=== PATIENT | female | born 1960 | race Caucasian/White ===

== ENCOUNTER 2021-02-14 09:19 | Day surgery (SDC) | payer OTHER ==
[2021-02-14] MEDS: Polymyxin B/Trimethoprim 10 ML Bottle EYERT SCH ×5 (09:52→11:36)
[2021-02-14] MEDS: Brimonidine 0.2% Ophth Soln 5 ML Bottle EYERT SCH ×5 (09:59→11:36)
--- NOTE | 2021-02-14 10:06 | PCM.PREANE ---
Preanesthetic Assessment - Procedure Proposed Procedure: left cataract extraction and IOC - Anesthesia/Transfusion/Family Hx Anesthesia History: Prior Anesthesia Without Reaction Family History of Anesthesia Reaction: No Transfusion History: Prior Transfusion Without Reaction Intubation History: Unknown - Review of Systems General: No Symptoms Pulmonary: Wheezing, Cough (smoker cough- chronic) Cardiovascular: No Symptoms Gastrointestinal: Nausea Neurological: No Symptoms Other: Reports: Liver Problems (liver cancer) - Physical Assessment NPO Status Date: 02/13/21 NPO Status Time: 19:00 Vital Signs: Last Vital Signs Temp 97.5 F 02/14/21 09:45 Pulse 90 02/14/21 09:45 Resp 16 02/14/21 09:45 BP 138/94 H 02/14/21 09:45 Pulse Ox 98 02/14/21 09:45 Height: 1.65 m Weight: 55.792 kg ASA Class: 3 Mental Status: Alert & Oriented x3 Airway Class: Mallampati = 2 Dentition: Reports: [place](s), Broken Tooth/Teeth, Missing Tooth/Teeth, Caries Thyro-Mental Finger Breadths: 2 Mouth Opening Finger Breadths: 2 ROM/Head Extension: Full Lungs: Normal Respiratory Effort, Wheezing (small wheeze of right upper lobe) Cardiovascular: Regular Rate, Regular Rhythm, No Murmurs - Allergies Allergies/Adverse Reactions: Allergies Allergy/AdvReac Type Severity Reaction Status Date / Time No Known Allergies Allergy Verified 02/14/21 09:29 - Acknowledgements Anesthesia Type Planned: MAC Pt an Appropriate Candidate for the Planned Anesthesia: Yes Alternatives and Risks of Anesthesia Discussed w Pt/Guardian: Yes Pt/Guardian Understands and Agrees with Anesthesia Plan: Yes PreAnesthesia Questionnaire HEENT History: Reports: Cataract, Impaired Vision Cardiovascular History: Reports: None Respiratory History: Reports: Other (See Below) (hx of smoking) Other Respiratory History: mlung cancer and hx of smoking Gastrointestinal History: Reports: None Genitourinary History: Reports: None Musculoskeletal History: Reports: RA Neurological History: Reports: None Psychiatric History: Reports: Anxiety Endocrine/Metabolic History: Reports: None Hematologic History: Reports: None Immunologic History: Reports: None Oncologic (Cancer) History: Reports: Liver, Lung, Other (See Below) (hx chemo) Other Oncologic History: currently on chemo IV and gets it every 21 days, going in next saturday for her next dose of chemo Dermatologic History: Reports: None - Past Surgical History Female Surgical History: Reports: Hysterectomy - SUBSTANCE USE Tobacco Use Status *Q: Former Tobacco User (quit 2020) Tobacco Use Within Last Twelve Months: No Second Hand Smoke Exposure: No Days Per Week of Alcohol Use: 0 Number of Drinks Per Day: 0 Total Drinks Per Week: 0 Recreational Drug Use History: No - HOME MEDS Home Medications: Home Meds Calcium Carbonate/Vitamin D3 [Calcium 500+D Tablet Chew] 1 tab PO DAILY 02/14/21 [History] Dextran 70/Hypromellose [Artificial Tears] 1 each OP DAILY 02/14/21 [History] Hydrocodone/Acetaminophen [HYDROcodone-Acetaminophen 5-325 MG] 1 each PO DAILY 02/14/21 [History] LORazepam [Ativan] 1 mg PO DAILY PRN 02/14/21 [History] Magnesium Oxide [Magnesium] 400 mg PO DAILY 02/14/21 [History] Potassium Chloride 20 meq PO DAILY 02/14/21 [History] allopurinoL [Zyloprim] 100 mg PO DAILY 02/14/21 [History] levETIRAcetam [Keppra] 500 mg PO DAILY 02/14/21 [History] - CURRENT (IN HOUSE) MEDS Current Meds: Current Medications Brimonidine Tartrate (Brimonidine 0.2% Ophth Soln 5 Ml Bottle) 0 ml EYERT ASDIRECTED ZAIRA Stop: 02/14/21 23:00 Cefuroxime Sodium (Cefuroxime 10 Mg/Ml Syringe) 0 mg EYERT ASDIRECTED ZAIRA Stop: 02/14/21 23:00 Lidocaine HCl (Lidocaine 1% Pf 2 Ml Sdv) 0 ml INJECT ASDIRECTED ZAIRA Stop: 02/14/21 23:00 Phenylephrine HCl (Phenylephrine 2.5% Ophth Soln 2 Ml Bot) 0 ml EYERT ASDIRECTED ZAIRA Stop: 02/14/21 23:00 Pilocarpine HCl (Pilocarpine 4% Ophth Soln 15 Ml Bot) 0 ml EYERT ASDIRECTED ZAIRA Stop: 02/14/21 23:00 Polymyxin/Trimethoprim Sulfate (Polymyxin B/Trimethoprim 10 Ml Bottle) 0 ml EYERT ASDIRECTED ZAIRA Stop: 02/14/21 23:00 Last Admin: 02/14/21 09:52 Dose: 1 drop Documented by: Tetracaine HCl (Tetracaine Hcl/Pf 0.5% 4 Ml Bottle) 0 ml EYEBOTH ASDIRECTED ZAIRA Stop: 02/14/21 23:00 Tropicamide (Tropicamide 1% Ophth Soln 15 Ml Bottle) 0 ml EYERT ASDIRECTED ZAIRA Stop: 02/14/21 23:00
[2021-02-14] MEDS: Phenylephrine 2.5% Ophth Soln 2 ML Bot EYERT SCH ×5 (10:11→11:18)
[2021-02-14] MEDS: Tropicamide 1% Ophth Soln 15 ML Bottle EYERT SCH ×4 (10:15→10:55)
[2021-02-14] MEDS: Tetracaine HCl/PF 0.5% 4 ML Bottle EYEBOTH SCH ×3 (11:08→11:33)
[2021-02-14] MEDS: Lidocaine 1% PF 2 ML SDV INJECT SCH ×2 (11:25→11:33)
[2021-02-14] MEDS: Cefuroxime 10 MG/ML SYRINGE EYERT SCH ×2 (11:34→11:35)
[2021-02-14] MEDS: Pilocarpine 4% Ophth Soln 15 ML Bot EYERT SCH ×2 (11:34→11:36)
--- NOTE | 2021-02-14 11:39 | PCM48HPAN ---
Post Anesthesia Note - EVALUATION WITHIN 48HRS OF ANESTHETIC Vital Signs in Normal Range: Yes Patient Participated in Evaluation: Yes Respiratory Function Stable: Yes Airway Patent: Yes Cardiovascular Function Stable: Yes Hydration Status Stable: Yes Pain Control Satisfactory: Yes Nausea and Vomiting Control Satisfactory: Yes Mental Status Recovered: Yes Vital Signs: Last Vital Signs Temp 36.4 C 02/14/21 09:45 Pulse 90 02/14/21 09:45 Resp 16 02/14/21 09:45 BP 138/94 H 02/14/21 09:45 Pulse Ox 98 02/14/21 09:45
== END 2021-02-14 11:47 | disposition home or self-care (01) ==
LOC: JD.SDS 09:19
PROVIDERS: ATTEND Ophthalmology
DX: H25.813 Combined forms of age-related cataract, bilateral (principal); H18.451 Nodular corneal degeneration, right eye; H35.373 Puckering of macula, bilateral; H35.3131 Nonexudative age-related macular degeneration, bilateral, early dry stage; H16.223 Keratoconjunctivitis sicca, not specified as Sjogren's, bilateral; Z98.890 Other specified postprocedural states; Z79.899 Other long term (current) drug therapy; Z87.891 Personal history of nicotine dependence
CPT/HCPCS: 66984; J0697; C1780

== ENCOUNTER 2021-02-24 20:38 | Emergency (ER) | payer OTHER ==
[2021-02-24] MEDS ORDERED: Sodium Chloride 0.9% 10 ML Syringe FLUSH PRN (21:20)
[2021-02-24] MEDS ORDERED: Sodium Chloride 0.9% 1,000 ML IV SCH (21:30)
[2021-02-24] MEDS ORDERED: Ondansetron 4 MG/2 ML SDV IVPUSH ONE (21:39)
--- NOTE | 2021-02-24 22:10 | EDM.PDOC ---
ED HPI GENERAL MEDICAL PROBLEM - General Chief Complaint: General Stated Complaint: WEAK/UNABLE TO EAT OR DRINK Time Seen by Provider: 02/24/21 21:04 Source of Information: Reports: Patient, RN Notes Reviewed - History of Present Illness INITIAL COMMENTS - FREE TEXT/NARRATIVE: 60 yr old female comes in feeling very weak, dehydrated. she has been getting chemo for about 1 yr with hx of cancer involving her lung, liver and brain under the care of Jayjay Holland. She did get her last chemo 2 days ago. Not eating, drinking some but not a lot of fluids. She has not been vomiting. No diarrhea. Mouth feels dry. Very occasional cough, no chest pain or difficulty breathing. - Related Data Allergies Allergy/AdvReac Type Severity Reaction Status Date / Time No Known Allergies Allergy Verified 02/24/21 21:09 Home Meds: Home Meds Calcium Carbonate/Vitamin D3 [Calcium 500+D Tablet Chew] 1 tab PO DAILY 02/14/21 [History] Dextran 70/Hypromellose [Artificial Tears] 1 each OP DAILY 02/14/21 [History] Hydrocodone/Acetaminophen [HYDROcodone-Acetaminophen 5-325 MG] 1 each PO DAILY 02/14/21 [History] LORazepam [Ativan] 1 mg PO DAILY PRN 02/14/21 [History] Magnesium Oxide [Magnesium] 400 mg PO DAILY 02/14/21 [History] Potassium Chloride 20 meq PO BID 02/14/21 [History] allopurinoL [Zyloprim] 100 mg PO DAILY 02/14/21 [History] levETIRAcetam [Keppra] 500 mg PO BID 02/14/21 [History] Prochlorperazine [Compazine] 10 mg PO QID PRN 02/24/21 [History] dexAMETHasone [Dexamethasone] 2 mg PO DAILY 02/24/21 [History] Past Medical History HEENT History: Reports: Cataract, Impaired Vision Cardiovascular History: Reports: None Respiratory History: Reports: Other (See Below) Other Respiratory History: mlung cancer and hx of smoking Gastrointestinal History: Reports: None Genitourinary History: Reports: None Musculoskeletal History: Reports: RA Neurological History: Reports: None Psychiatric History: Reports: Anxiety Endocrine/Metabolic History: Reports: None Hematologic History: Reports: None Immunologic History: Reports: None Oncologic (Cancer) History: Reports: Brain, Liver, Lung, Other (See Below) Other Oncologic History: currently on chemo IV and gets it every 21 days, going in next saturday for her next dose of chemo Dermatologic History: Reports: None - Past Surgical History Female Surgical History: Reports: Hysterectomy Social & Family History - Tobacco Use Tobacco Use Status *Q: Unknown Ever Used Tobacco ED ROS GENERAL - Review of Systems Review Of Systems: See Below Constitutional: Reports: Decreased Appetite. Denies: Fever, Chills HEENT: Denies: Throat Pain Respiratory: Reports: Cough (very occasional). Denies: Shortness of Breath Cardiovascular: Denies: Chest Pain GI/Abdominal: Reports: Anorexia, Decreased Appetite. Denies: Abdominal Pain, Diarrhea, Vomiting Musculoskeletal: Reports: No Symptoms Skin: Reports: No Symptoms Neurological: Reports: Dizziness. Denies: Headache ED EXAM, GENERAL - Physical Exam Exam: See Below General Appearance: Alert, No Apparent Distress Head: Atraumatic Neck: Supple Respiratory/Chest: No Respiratory Distress Cardiovascular: Tachycardia GI/Abdominal: Soft, Non-Tender. No: Guarding Extremities: Normal Inspection, Normal Range of Motion. No: Pedal Edema, Leg Pain Neurological: Alert, Oriented, No Motor/Sensory Deficits Skin Exam: Warm, Dry, Normal Color, No Rash Course - Vital Signs Last Recorded V/S: Last Vital Signs Temp 98.5 F 02/24/21 21:06 Pulse 122 H 02/24/21 21:06 Resp 18 02/24/21 21:06 BP 137/82 02/24/21 21:06 Pulse Ox 95 02/24/21 21:06 - Orders/Labs/Meds Orders: Active Orders 24 hr Category Date Time Status Peripheral IV Insertion Adult [OM.PC] Stat Oth 02/24/21 21:20 Ordered Labs: Laboratory Tests 02/24/21 02/24/21 Range/Units 21:36 21:36 WBC 10.88 H (3.98-10.04) K/mm3 RBC 3.35 L (3.98-5.22) M/mm3 Hgb 10.8 L (11.2-15.7) gm/dl Hct 32.3 L (34.1-44.9) % MCV 96.4 H (79.4-94.8) fl MCH 32.2 (25.6-32.2) pg MCHC 33.4 (32.2-35.5) g/dl RDW Std Deviation 59.8 H (36.4-46.3) fL Plt Count 277 (182-369) K/mm3 MPV 7.8 L (9.4-12.3) fl Neut % (Auto) 90.7 H (34.0-71.1) % Lymph % (Auto) 5.1 L (19.3-51.7) % [place] % (Auto) 3.5 L (4.7-12.5) % Eos % (Auto) 0 L (0.7-5.8) Baso % (Auto) 0.1 (0.1-1.2) % Neut # (Auto) 9.86 H (1.56-6.13) K/mm3 Lymph # (Auto) 0.56 L (1.18-3.74) K/mm3 [place] # (Auto) 0.38 H (0.24-0.36) K/mm3 Eos # (Auto) 0.00 L (0.04-0.36) K/mm3 Baso # (Auto) 0.01 (0.01-0.08) K/mm3 Sodium 130 L (136-145) mEq/L Potassium 4.2 (3.5-5.1) mEq/L Chloride 95 L (98-107) mEq/L Carbon Dioxide 20 L (21-32) mEq/L Anion Gap 19.2 H (5-15) BUN 9 (7-18) mg/dL Creatinine 0.6 (0.55-1.02) mg/dL Est Cr Clr Drug Dosing TNP Estimated GFR (MDRD) > 60 (>60) mL/min BUN/Creatinine Ratio 15.0 (14-18) Glucose 84 (70-99) mg/dL Calcium 8.2 L (8.5-10.1) mg/dL Total Bilirubin 1.3 H (0.2-1.0) mg/dL AST 820 H (15-37) U/L ALT 246 H (14-59) U/L Alkaline Phosphatase 620 H (46-116) U/L Total Protein 6.6 (6.4-8.2) g/dl Albumin 2.3 L (3.4-5.0) g/dl Globulin 4.3 gm/dL Albumin/Globulin Ratio 0.5 L (1-2) Meds: Medications Discontinued Medications Generic Name Dose Route Start Last Admin Trade Name [place] PRN Reason Stop Dose Admin Heparin Sodium (Porcine) 500 units 02/24/21 23:45 02/24/21 23:51 Heparin Sodium 100 Units/Ml 5 Ml Syringe FLUSH 500 units ASDIRECTED PRN Administration deacess port Sodium Chloride 1,000 mls @ 999 mls/hr 02/24/21 21:30 02/24/21 21:37 Normal Saline IV 999 mls/hr ONETIME ZAIRA Administration Lactated Ringer's 1,000 mls @ 999 mls/hr 02/24/21 22:26 02/24/21 22:56 Ringers, Lactated IV 02/24/21 23:26 999 mls/hr .BOLUS ONE Administration Ondansetron HCl 4 mg 02/24/21 21:39 02/24/21 22:10 Ondansetron 4 Mg/2 Ml Sdv IVPUSH 02/24/21 21:40 Not Given ONETIME ONE Sodium Chloride 10 ml 02/24/21 21:20 02/24/21 21:37 Sodium Chloride 0.9% 10 Ml Syringe FLUSH 10 ml ASDIRECTED PRN Administration Keep Vein Open - Re-Assessments/Exams Free Text/Narrative Re-Assessment/Exam: 02/24/21 22:36 labs confirm she is quite dehydrated. Anion gap of around 19, Co2 20. First liter of NS is about in. Will give 1 further liter LR prior to discharge. Departure - Departure Time of Disposition: 23:35 Disposition: Home, Self-Care 01 Condition: Fair Clinical Impression: Anorexia, History of recent chemotherapy - Discharge Information Referrals: Gloria Lowe [employer] [Primary Care Provider] - Forms: ED Department Discharge Additional Instructions: Clear liquids and bland diet as tolerated. Continue current medications. Call Dr Dickerson's nurse Saturday morning. See if arrangements can be made for clinic infusions as needed. Return to ED as needed if symptoms worsening in any way. Sepsis Event Note (ED) - Evaluation Sepsis Screening Result: No Definite Risk - Focused Exam Vital Signs: Vital Signs Temp Pulse Resp BP Pulse Ox 02/24/21 21:06 98.5 F 122 H 18 137/82 95 - My Orders Last 24 Hours: My Active Orders 02/24/21 21:20 Peripheral IV Insertion Adult [OM.PC] Stat - Assessment/Plan Last 24 Hours: My Active Orders 02/24/21 21:20 Peripheral IV Insertion Adult [OM.PC] Stat
[2021-02-24] MEDS ORDERED: Lactated Ringers 1,000 ML IV ONE (22:26)
== END 2021-02-24 23:55 | disposition home or self-care (01) ==
LOC: JD.ED 20:38
DX: R63.0 Anorexia (principal); E86.0 Dehydration; M06.9 Rheumatoid arthritis, unspecified; Z79.899 Other long term (current) drug therapy; Z87.891 Personal history of nicotine dependence; Z92.21 Personal history of antineoplastic chemotherapy
CPT/HCPCS: 36415; 80053; 85025; 99284; J1642; J7030; J7120

== ENCOUNTER 2021-03-02 13:19 | Emergency (ER) | payer OTHER ==
--- NOTE | 2021-03-02 14:47 | EDM.PDOC ---
<Wojciech Kelly Deepak - Last Filed: 03/03/21 05:57> ED HPI GENERAL MEDICAL PROBLEM - General Chief Complaint: Gastrointestinal Problem Stated Complaint: NOT EATING CAN NOT SWALLOW MEDS Time Seen by Provider: 03/02/21 13:53 - Related Data Allergies Allergy/AdvReac Type Severity Reaction Status Date / Time No Known Allergies Allergy Verified 03/02/21 13:55 Home Meds: Home Meds Calcium Carbonate/Vitamin D3 [Calcium 500+D Tablet Chew] 1 tab PO DAILY 02/14/21 [History] Dextran 70/Hypromellose [Artificial Tears] 1 each OP DAILY 02/14/21 [History] Hydrocodone/Acetaminophen [HYDROcodone-Acetaminophen 5-325 MG] 1 each PO DAILY 02/14/21 [History] LORazepam [Ativan] 1 mg PO DAILY PRN 02/14/21 [History] Magnesium Oxide [Magnesium] 400 mg PO DAILY 02/14/21 [History] Potassium Chloride 20 meq PO BID 02/14/21 [History] allopurinoL [Zyloprim] 100 mg PO DAILY 02/14/21 [History] levETIRAcetam [Keppra] 500 mg PO BID 02/14/21 [History] Prochlorperazine [Compazine] 10 mg PO QID PRN 02/24/21 [History] dexAMETHasone [Dexamethasone] 2 mg PO DAILY 02/24/21 [History] Course - Re-Assessments/Exams Free Text/Narrative Re-Assessment/Exam: 03/02/21 21:[address] Segundo for change of shift. I agree with his history and physical examination as documented. Portable chest radiograph appears to be grossly normal. The cardiac silhouette is within normal limits. No pulmonary vascular congestion. No pleural effusions seen on this AP view. No focal infiltrate. No pneumothorax. Left- sided Port-A-Cath incidentally noted. Formal read per the Radiologist pending. BMP is remarkable for continued hyponatremia 128, with a bicarbonate up to 20 and an anion gap down to 18.1, with remainder of her BMP being unremarkable. The patient has not provided a urine sample for urinalysis. Notified that the patient would like to go home. She is uncomfortable here in the ED. 03/02/21 21:49 I discussed the situation with the patient and her [id number], at the bedside. The patient is willing to try to give us a urine sample and wait for urinalysis. 03/02/21 23:10 The patient's urinalysis is unremarkable. 03/02/21 23:11 Test results discussed with the patient. She states that she wants to go home, but I am notified by Shantel LYNNE that the patient's is not comfortable taking her home, and that he has left. Unfortunately for the patient, she will need to stay here in the ED overnight. 03/03/21 05:57 Notified by Shantel LYNNE that the patient's is here, ready to take the patient home. Departure - Departure Time of Disposition: 05:57 Disposition: Home, Self-Care 01 Condition: Good Clinical Impression: Generalized weakness, Dizzy, Anorexia, Hyponatremia, High anion gap metabolic acidosis - Discharge Information *PRESCRIPTION DRUG MONITORING PROGRAM REVIEWED*: Not Applicable *COPY OF PRESCRIPTION DRUG MONITORING REPORT IN PATIENT SANTOS: Not Applicable Instructions: Hyponatremia, [id number], Metabolic Acidosis, Dizziness, [id number] Referrals: Gloria Lowe NP [Ordering Only Provider] - Forms: ED Department Discharge Additional Instructions: You were seen in the emergency room for generalized weakness, dizziness, and decreased oral intake in the setting of receiving chemotherapy. Work-up in the ER included numerous blood tests, an arterial blood gas, a urinalysis, a swab for the SARS-CoV-2 virus, and a chest x-ray. Your work-up found your sodium to be moderately depressed at 128, along with mild acidosis and elevated liver enzymes. You were treated with IV fluid and several doses of IV Dilaudid. Going forward, we recommend that you continue to take your current medications as prescribed. If any other problems, please do not hesitate to return to the ER. <Chandu Segundo - Last Filed: 03/05/21 17:14> ED HPI GENERAL MEDICAL PROBLEM - General Source of Information: Reports: Patient, RN Notes Reviewed - History of Present Illness INITIAL COMMENTS - FREE TEXT/NARRATIVE: 60 yr old female comes in very weak, dizzy, status post recent chemo. 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 She was diagnosed about 1 yr ago. Last chemo 8 days ago. Has not been eating much at all and drinking very little for fluids. She has mets to her back and a lot of low back pain. No appetite, has not been vomiting. No diarrhea. Adding to family stress their daughter just a week ago, Rosary tomorrow, in 1 1/2 days. Past Medical History HEENT History: Reports: Cataract, Impaired Vision Cardiovascular History: Reports: None Respiratory History: Reports: Other (See Below) Other Respiratory History: mlung cancer and hx of smoking Gastrointestinal History: Reports: None Genitourinary History: Reports: None Musculoskeletal History: Reports: RA Neurological History: Reports: None Psychiatric History: Reports: Anxiety Endocrine/Metabolic History: Reports: None Hematologic History: Reports: None Immunologic History: Reports: None Oncologic (Cancer) History: Reports: Brain, Liver, Lung, Other (See Below) Other Oncologic History: currently on chemo IV and gets it every . last received last week saturday. Dermatologic History: Reports: None - Past Surgical History Female Surgical History: Reports: Hysterectomy Social & Family History - Tobacco Use Tobacco Use Status *Q: Former Tobacco User Used Tobacco, but Quit: Yes Month/Year Tobacco Last Used: august 2019 - Caffeine Use Caffeine Use: Reports: None - Recreational Drug Use Recreational Drug Use: No ED ROS GENERAL - Review of Systems Review Of Systems: See Below Constitutional: Reports: Decreased Appetite, Weight Loss. Denies: Fever, Chills HEENT: Reports: Other (mouth is dry) Respiratory: Denies: Shortness of Breath Cardiovascular: Denies: Chest Pain Endocrine: Reports: Fatigue GI/Abdominal: Reports: Decreased Appetite, Nausea. Denies: Abdominal Pain, Diarrhea, Vomiting Skin: Reports: Pallor. Denies: Diaphoresis Neurological: Reports: Dizziness, Weakness (generalized) ED EXAM, GENERAL - Physical Exam Exam: See Below General Appearance: Other (drowsy, very ill appearing at time of initial exam) Eye Exam: Bilateral Eye: PERRL (eyes are sunken bilat) Ear Exam: Bilateral Ear: Auricle Normal Nose: Normal Inspection Throat/Mouth: Other (oral mucosa very dry) Respiratory/Chest: No Respiratory Distress, Lungs Clear, Normal Breath Sounds Cardiovascular: Tachycardia GI/Abdominal: Soft, Non-Tender, Hepatomegaly Back Exam: No: CVA Tenderness (L), CVA Tenderness (R) Extremities: Normal Inspection, Pedal Edema (trace bilat). No: Leg Pain, Increased Warmth Neurological: Other (very drowsy at time of initial exam) Skin Exam: Pallor Course - Vital Signs Last Recorded V/S: Last Vital Signs Temp 96.4 F L 03/02/21 13:49 Pulse 116 H 03/03/21 02:34 Resp 16 03/03/21 02:34 BP 134/94 H 03/03/21 02:34 Pulse Ox 92 L 03/03/21 02:34 - Orders/Labs/Meds Labs: Laboratory Tests 03/02/21 03/02/21 03/02/21 Range/Units 14:18 14:18 14:18 WBC 13.89 H (3.98-10.04) K/mm3 RBC 3.11 L (3.98-5.22) M/mm3 Hgb 10.0 L (11.2-15.7) gm/dl Hct 29.9 L (34.1-44.9) % MCV 96.1 H (79.4-94.8) fl MCH 32.2 (25.6-32.2) pg MCHC 33.4 (32.2-35.5) g/dl RDW Std Deviation 61.0 H (36.4-46.3) fL Plt Count 130 L D (182-369) K/mm3 MPV 9.4 (9.4-12.3) fl Neut % (Auto) 93.9 H (34.0-71.1) % Lymph % (Auto) 2.0 L (19.3-51.7) % [place] % (Auto) 3.4 L (4.7-12.5) % Eos % (Auto) 0 L (0.7-5.8) Baso % (Auto) 0.1 (0.1-1.2) % Neut # (Auto) 13.05 H (1.56-6.13) K/mm3 Lymph # (Auto) 0.28 L (1.18-3.74) K/mm3 [place] # (Auto) 0.47 H (0.24-0.36) K/mm3 Eos # (Auto) 0.00 L (0.04-0.36) K/mm3 Baso # (Auto) 0.01 (0.01-0.08) K/mm3 Manual Slide Review Abnormal smear PT (9.7-12.0) SECONDS INR Puncture Site ABG pH (7.35-7.45) ABG pCO2 (35.0-45.0) mmHg ABG pO2 (80.0-100.0) mmHg ABG HCO3 (22.0-26.0) meq/L ABG O2 Saturation (96.0-97.0) % ABG Base Excess (-2-2.0) [place] Test O2 Delivery Device Oxygen Flow Rate FiO2 (21.00-100.00) % Sodium 128 L (136-145) mEq/L Potassium 4.0 (3.5-5.1) mEq/L Chloride 94 L (98-107) mEq/L Carbon Dioxide 17 L (21-32) mEq/L Anion Gap 21.0 H (5-15) BUN 8 (7-18) mg/dL Creatinine 0.5 L (0.55-1.02) mg/dL Est Cr Clr Drug Dosing 102.03 mL/min Estimated GFR (MDRD) > 60 (>60) mL/min BUN/Creatinine Ratio 16.0 (14-18) Glucose 76 (70-99) mg/dL Calcium 7.8 L (8.5-10.1) mg/dL Total Bilirubin 1.2 H (0.2-1.0) mg/dL AST 434 H (15-37) U/L ALT 75 H (14-59) U/L Alkaline Phosphatase 668 H (46-116) U/L Ammonia (11-32) umol/L C-Reactive Protein 13.0 H* (<1.0) mg/dL NT-Pro-B Natriuret Pep (0-125) pg/mL Total Protein 5.8 L (6.4-8.2) g/dl Albumin 2.1 L (3.4-5.0) g/dl Globulin 3.7 gm/dL Albumin/Globulin Ratio 0.6 L (1-2) Lipase 168 (73-393) U/L Urine Color (Yellow) Urine Appearance (Clear) Urine pH (5.0-8.0) Ur Specific [place] (1.005-1.030) Urine Protein (Negative) Urine Glucose (UA) (Negative) Urine Ketones (Negative) Urine Occult Blood (Negative) Urine Nitrite (Negative) Urine Bilirubin (Negative) Urine Urobilinogen (0.2-1.0) Ur Leukocyte Esterase (Negative) U Hyaline Cast (Auto) (0-5) /lpf Urine RBC (0-5) /hpf Urine WBC (0-5) /hpf Ur Squamous Epith Cells (0-5) /hpf Urine Bacteria (FEW) /hpf Urine Mucus (FEW) /hpf SARS-CoV-2 RNA (TERI) (NEGATIVE) 03/02/21 03/02/21 03/02/21 Range/Units 14:18 14:18 14:59 WBC (3.98-10.04) K/mm3 RBC (3.98-5.22) M/mm3 Hgb (11.2-15.7) gm/dl Hct (34.1-44.9) % MCV (79.4-94.8) fl MCH (25.6-32.2) pg MCHC (32.2-35.5) g/dl RDW Std Deviation (36.4-46.3) fL Plt Count (182-369) K/mm3 MPV (9.4-12.3) fl Neut % (Auto) (34.0-71.1) % Lymph % (Auto) (19.3-51.7) % [place] % (Auto) (4.7-12.5) % Eos % (Auto) (0.7-5.8) Baso % (Auto) (0.1-1.2) % Neut # (Auto) (1.56-6.13) K/mm3 Lymph # (Auto) (1.18-3.74) K/mm3 [place] # (Auto) (0.24-0.36) K/mm3 Eos # (Auto) (0.04-0.36) K/mm3 Baso # (Auto) (0.01-0.08) K/mm3 Manual Slide Review PT 11.2 (9.7-12.0) SECONDS INR 1.01 Puncture Site ABG pH (7.35-7.45) ABG pCO2 (35.0-45.0) mmHg ABG pO2 (80.0-100.0) mmHg ABG HCO3 (22.0-26.0) meq/L ABG O2 Saturation (96.0-97.0) % ABG Base Excess (-2-2.0) [place] Test O2 Delivery Device Oxygen Flow Rate FiO2 (21.00-100.00) % Sodium (136-145) mEq/L Potassium (3.5-5.1) mEq/L Chloride (98-107) mEq/L Carbon Dioxide (21-32) mEq/L Anion Gap (5-15) BUN (7-18) mg/dL Creatinine (0.55-1.02) mg/dL Est Cr Clr Drug Dosing mL/min Estimated GFR (MDRD) (>60) mL/min BUN/Creatinine Ratio (14-18) Glucose (70-99) mg/dL Calcium (8.5-10.1) mg/dL Total Bilirubin (0.2-1.0) mg/dL AST (15-37) U/L ALT (14-59) U/L Alkaline Phosphatase (46-116) U/L Ammonia < 10 L (11-32) umol/L C-Reactive Protein (<1.0) mg/dL NT-Pro-B Natriuret Pep 953 H (0-125) pg/mL Total Protein (6.4-8.2) g/dl Albumin (3.4-5.0) g/dl Globulin gm/dL Albumin/Globulin Ratio (1-2) Lipase (73-393) U/L Urine Color (Yellow) Urine Appearance (Clear) Urine pH (5.0-8.0) Ur Specific [place] (1.005-1.030) Urine Protein (Negative) Urine Glucose (UA) (Negative) Urine Ketones (Negative) Urine Occult Blood (Negative) Urine Nitrite (Negative) Urine Bilirubin (Negative) Urine Urobilinogen (0.2-1.0) Ur Leukocyte Esterase (Negative) U Hyaline Cast (Auto) (0-5) /lpf Urine RBC (0-5) /hpf Urine WBC (0-5) /hpf Ur Squamous Epith Cells (0-5) /hpf Urine Bacteria (FEW) /hpf Urine Mucus (FEW) /hpf SARS-CoV-2 RNA (TERI) (NEGATIVE) 03/02/21 03/02/21 03/02/21 Range/Units 15:25 15:56 19:15 WBC (3.98-10.04) K/mm3 RBC (3.98-5.22) M/mm3 Hgb (11.2-15.7) gm/dl Hct (34.1-44.9) % MCV (79.4-94.8) fl MCH (25.6-32.2) pg MCHC (32.2-35.5) g/dl RDW Std Deviation (36.4-46.3) fL Plt Count (182-369) K/mm3 MPV (9.4-12.3) fl Neut % (Auto) (34.0-71.1) % Lymph % (Auto) (19.3-51.7) % [place] % (Auto) (4.7-12.5) % Eos % (Auto) (0.7-5.8) Baso % (Auto) (0.1-1.2) % Neut # (Auto) (1.56-6.13) K/mm3 Lymph # (Auto) (1.18-3.74) K/mm3 [place] # (Auto) (0.24-0.36) K/mm3 Eos # (Auto) (0.04-0.36) K/mm3 Baso # (Auto) (0.01-0.08) K/mm3 Manual Slide Review PT (9.7-12.0) SECONDS INR Puncture Site Lt radial ABG pH 7.47 H (7.35-7.45) ABG pCO2 24.9 L (35.0-45.0) mmHg ABG pO2 65.0 L (80.0-100.0) mmHg ABG HCO3 17.7 L (22.0-26.0) meq/L ABG O2 Saturation 90.6 L (96.0-97.0) % ABG Base Excess -4.5 L (-2-2.0) [place] Test Positive O2 Delivery Device Room air Oxygen Flow Rate 0.0 FiO2 21.00 (21.00-100.00) % Sodium 128 L (136-145) mEq/L Potassium 4.1 (3.5-5.1) mEq/L Chloride 94 L (98-107) mEq/L Carbon Dioxide 20 L (21-32) mEq/L Anion Gap 18.1 H (5-15) BUN 8 (7-18) mg/dL Creatinine 0.5 L (0.55-1.02) mg/dL Est Cr Clr Drug Dosing 102.03 mL/min Estimated GFR (MDRD) > 60 (>60) mL/min BUN/Creatinine Ratio 16.0 (14-18) Glucose 72 (70-99) mg/dL Calcium 8.1 L (8.5-10.1) mg/dL Total Bilirubin (0.2-1.0) mg/dL AST (15-37) U/L ALT (14-59) U/L Alkaline Phosphatase (46-116) U/L Ammonia (11-32) umol/L C-Reactive Protein (<1.0) mg/dL NT-Pro-B Natriuret Pep (0-125) pg/mL Total Protein (6.4-8.2) g/dl Albumin (3.4-5.0) g/dl Globulin gm/dL Albumin/Globulin Ratio (1-2) Lipase (73-393) U/L Urine Color (Yellow) Urine Appearance (Clear) Urine pH (5.0-8.0) Ur Specific [place] (1.005-1.030) Urine Protein (Negative) Urine Glucose (UA) (Negative) Urine Ketones (Negative) Urine Occult Blood (Negative) Urine Nitrite (Negative) Urine Bilirubin (Negative) Urine Urobilinogen (0.2-1.0) Ur Leukocyte Esterase (Negative) U Hyaline Cast (Auto) (0-5) /lpf Urine RBC (0-5) /hpf Urine WBC (0-5) /hpf Ur Squamous Epith Cells (0-5) /hpf Urine Bacteria (FEW) /hpf Urine Mucus (FEW) /hpf SARS-CoV-2 RNA (TERI) Negative (NEGATIVE) 03/02/21 Range/Units 22:15 WBC (3.98-10.04) K/mm3 RBC (3.98-5.22) M/mm3 Hgb (11.2-15.7) gm/dl Hct (34.1-44.9) % MCV (79.4-94.8) fl MCH (25.6-32.2) pg MCHC (32.2-35.5) g/dl RDW Std Deviation (36.4-46.3) fL Plt Count (182-369) K/mm3 MPV (9.4-12.3) fl Neut % (Auto) (34.0-71.1) % Lymph % (Auto) (19.3-51.7) % [place] % (Auto) (4.7-12.5) % Eos % (Auto) (0.7-5.8) Baso % (Auto) (0.1-1.2) % Neut # (Auto) (1.56-6.13) K/mm3 Lymph # (Auto) (1.18-3.74) K/mm3 [place] # (Auto) (0.24-0.36) K/mm3 Eos # (Auto) (0.04-0.36) K/mm3 Baso # (Auto) (0.01-0.08) K/mm3 Manual Slide Review PT (9.7-12.0) SECONDS INR Puncture Site ABG pH (7.35-7.45) ABG pCO2 (35.0-45.0) mmHg ABG pO2 (80.0-100.0) mmHg ABG HCO3 (22.0-26.0) meq/L ABG O2 Saturation (96.0-97.0) % ABG Base Excess (-2-2.0) [place] Test O2 Delivery Device Oxygen Flow Rate FiO2 (21.00-100.00) % Sodium (136-145) mEq/L Potassium (3.5-5.1) mEq/L Chloride (98-107) mEq/L Carbon Dioxide (21-32) mEq/L Anion Gap (5-15) BUN (7-18) mg/dL Creatinine (0.55-1.02) mg/dL Est Cr Clr Drug Dosing mL/min Estimated GFR (MDRD) (>60) mL/min BUN/Creatinine Ratio (14-18) Glucose (70-99) mg/dL Calcium (8.5-10.1) mg/dL Total Bilirubin (0.2-1.0) mg/dL AST (15-37) U/L ALT (14-59) U/L Alkaline Phosphatase (46-116) U/L Ammonia (11-32) umol/L C-Reactive Protein (<1.0) mg/dL NT-Pro-B Natriuret Pep (0-125) pg/mL Total Protein (6.4-8.2) g/dl Albumin (3.4-5.0) g/dl Globulin gm/dL Albumin/Globulin Ratio (1-2) Lipase (73-393) U/L Urine Color Yellow (Yellow) Urine Appearance Clear (Clear) Urine pH 6.0 (5.0-8.0) Ur Specific [place] 1.020 (1.005-1.030) Urine Protein 2+ H (Negative) Urine Glucose (UA) Negative (Negative) Urine Ketones 3+ H (Negative) Urine Occult Blood Negative (Negative) Urine Nitrite Negative (Negative) Urine Bilirubin 2+ H (Negative) Urine Urobilinogen 0.2 (0.2-1.0) Ur Leukocyte Esterase Trace H (Negative) U Hyaline Cast (Auto) 10-20 H (0-5) /lpf Urine RBC 0-5 (0-5) /hpf Urine WBC 0-5 (0-5) /hpf Ur Squamous Epith Cells 0-5 (0-5) /hpf Urine Bacteria Few (FEW) /hpf Urine Mucus Few (FEW) /hpf SARS-CoV-2 RNA (TERI) (NEGATIVE) Meds: Medications Discontinued Medications Generic Name Dose Route Start Last Admin Trade Name Freq PRN Reason Stop Dose Admin Hydrocodone Bitart/Acetaminophen 1 tab 03/03/21 05:36 03/03/21 05:42 Acetaminophen/Hydrocodone 325-5 Mg Tab PO 03/03/21 05:37 1 tab ONETIME ONE Administration Heparin Sodium (Porcine) 500 units 03/03/21 05:57 03/03/21 06:15 Heparin Sodium 100 Units/Ml 5 Ml Syringe FLUSH 500 units ASDIRECTED PRN Administration deaccess port Hydromorphone HCl 0.5 mg 03/02/21 18:56 03/03/21 02:32 Hydromorphone 0.5 Mg/0.5 Ml Syringe IVPUSH 0.5 mg Q4H PRN Administration Pain (mild 1-3) Hydromorphone HCl 0.5 mg 03/02/21 22:10 03/02/21 22:30 Hydromorphone 0.5 Mg/0.5 Ml Syringe IVPUSH 03/02/21 22:11 0.5 mg ONETIME ONE Administration Hydromorphone HCl 0.5 mg 03/02/21 15:55 03/02/21 16:02 Hydromorphone 0.5 Mg/0.5 Ml Syringe IVPUSH 03/02/21 15:56 0.5 mg ONETIME ONE Administration Lactated Ringer's 1,000 mls @ 150 mls/hr 03/02/21 19:00 03/03/21 02:33 Ringers, Lactated IV 150 mls/hr ASDIRECTED ZAIRA Administration Lactated Ringer's 1,000 mls @ 999 mls/hr 03/02/21 15:16 03/02/21 16:02 Ringers, Lactated IV 03/02/21 16:16 999 mls/hr .BOLUS ONE Administration Lactated Ringer's 1,000 mls @ 999 mls/hr 03/02/21 17:28 03/02/21 17:42 Ringers, Lactated IV 03/02/21 18:28 999 mls/hr .BOLUS ONE Administration - Re-Assessments/Exams Free Text/Narrative Re-Assessment/Exam: 03/02/21 17:47. Have given 1 liter of fluid, she is a little more alert from arrival but still quite ill appearing, no urgency to void. WBC 13,900, Hgb 10, Na 128, An gap 21, Co2 17. ammonia 10, creat. 0.5, bun 8. Will give 1 further liter IV fluid, than decide if able to go home or need to be admitted. Hailee, our [facility] social media community manager has seen her, unfortunately home health and hospice not taking referrals right now due to being overworked and understaffed. I have written an order for a hospital bed to be supplied by [facility]. Of note Kelsey is now almostly completely bed ridden. She appears much more ill today compared to her ED visit when I saw her 1 week ago. She requires positioning in ways not feasible with an ordinary bed to alleviate pain. She is having borderline low oxygen here in the ED, has a hx of COPD, requires the head of the bed to be elevated more than 30 degrees most of the time to aid her breathing. 03/02/21 19:03. She feels better but still very weak, will do better if she c ould have more IV fluid, time to improve. Have ordered BMP to better see where we are at. The bed we had hoped for her is now gone, will keep her in the ED overnight with plan for discharge tomorrow for daughter's Rosary, . Change of shift, will transfer care to Dr Kelly. Sepsis Event Note (ED) - Evaluation Sepsis Screening Result: Possible Sepsis Risk
[2021-03-02] MEDS ORDERED: Lactated Ringers 1,000 ML IV ONE ×2 (15:16→17:28)
--- NOTE | 2021-03-02 15:32 | CR ---
Chest: Portable view of the chest was obtained. Comparison: No prior chest imaging is available. Study is overexposed which darkens the lung best. No gross parenchymal abnormality is seen. Heart size and mediastinum are normal. Left-sided infusion catheter is seen. Degenerative change is noted within both shoulders. Scattered disc space narrowing and endplate spurring is noted within the spine. Impression: 1. Less than optimal study as described above. Please correlate if exam should be repeated if clinical findings suggest the possibility of subtle parenchymal disease. 2. Left-sided infusion catheter. Other findings as noted above which are felt to be incidental. Diagnostic code #3
[2021-03-02] MEDS ORDERED: HYDROmorphone 0.5 MG/0.5 ML Syringe IVPUSH ONE ×2 (15:55→22:10)
[2021-03-02] MEDS: Lactated Ringers 1,000 ML IV SCH (19:10)
[2021-03-02] MEDS: HYDROmorphone 0.5 MG/0.5 ML Syringe IVPUSH PRN (19:10)
[2021-03-03] MEDS: HYDROmorphone 0.5 MG/0.5 ML Syringe IVPUSH PRN (02:32)
[2021-03-03] MEDS: Lactated Ringers 1,000 ML IV SCH (02:33)
[2021-03-03] MEDS ORDERED: Acetaminophen/HYDROcodone 325-5 MG Tab PO ONE (05:36)
== END 2021-03-03 06:16 | disposition home or self-care (01) ==
LOC: JD.ED 13:19
DX: R53.1 Weakness (principal); R42 Dizziness and giddiness; E87.2 Acidosis; R63.0 Anorexia; E87.1 Hypo-osmolality and hyponatremia; Z87.891 Personal history of nicotine dependence; Z20.822 Contact with and (suspected) exposure to COVID-19
CPT/HCPCS: 36415; 36600; 71045; 71045-26; 80048; 80053; 81001; 82140; 82803; 83690; 83880; 85025; 85610; 86140; 96374; 96376; 99284; 99285-25; A9270-GY; J1170; J1642; J7120; U0002

== ENCOUNTER 2021-03-08 04:49 | Emergency (ER) | payer OTHER ==
[2021-03-08] MEDS ORDERED: Sodium Chloride 0.9% 10 ML Syringe FLUSH PRN (06:02)
[2021-03-08] MEDS ORDERED: Sodium Chloride 0.9% 1,000 ML IV ONE (06:04)
--- NOTE | 2021-03-08 06:32 | EDM.PDOC ---
<Wojciech Kelly - Last Filed: 03/08/21 07:00> ED HPI GENERAL MEDICAL PROBLEM - General Chief Complaint: General Stated Complaint: DIZZY Time Seen by Provider: 03/08/21 05:00 Source of Information: Reports: Patient, Family () History Limitations: Reports: Physical Impairment (The patient is confused and unable to provide a reliable history, and the patient's is very hard of hearing and was not able to understand what was said) - History of Present Illness INITIAL COMMENTS - FREE TEXT/NARRATIVE: Mrs. 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 The mets to her back cause a lot of low back pain, for which she has been treated with [place]. She reports that she saw her Oncologist's [facility] yesterday, who switched her to what she believes is oxycodone. She states that she took 1 tablet of oxycodone around 03:00 this morning, then felt lightheaded when upright around 04:00. At triage, the patient was found to be tachycardic at 128 bpm, otherwise, she was hemodynamically stable, afebrile, saturating 96% on room air. She appears to be malnourished, frail, and confused, although in no acute distress. I reviewed the PMHx/PSHx/SocHx, which was reviewed with the patient by the RN. Due to their confusion, a recent review of systems is not obtainable. The patient's PCP is Gloria Lowe NP. Her Oncologist is Dr. Arnaud Dickerson, along with his midlevel, Rebecca Brower. Back Pain Score (Numeric/FACES): 8 - Related Data Allergies Allergy/AdvReac Type Severity Reaction Status Date / Time No Known Allergies Allergy Verified 03/08/21 05:11 Home Meds: Home Meds Calcium Carbonate/Vitamin D3 [Calcium 500+D Tablet Chew] 1 tab PO DAILY 02/14/21 [History] Dextran 70/Hypromellose [Artificial Tears] 1 each OP DAILY 02/14/21 [History] Hydrocodone/Acetaminophen [HYDROcodone-Acetaminophen 5-325 MG] 1 each PO DAILY 02/14/21 [History] LORazepam [Ativan] 1 mg PO DAILY PRN 02/14/21 [History] Magnesium Oxide [Magnesium] 400 mg PO DAILY 02/14/21 [History] Potassium Chloride 20 meq PO BID 02/14/21 [History] allopurinoL [Zyloprim] 100 mg PO DAILY 02/14/21 [History] levETIRAcetam [Keppra] 500 mg PO BID 02/14/21 [History] Prochlorperazine [Compazine] 10 mg PO QID PRN 02/24/21 [History] dexAMETHasone [Dexamethasone] 2 mg PO DAILY 02/24/21 [History] Past Medical History HEENT History: Reports: Cataract, Impaired Vision Cardiovascular History: Reports: None Respiratory History: Reports: Other (See Below) Other Respiratory History: mlung cancer and hx of smoking Gastrointestinal History: Reports: None Genitourinary History: Reports: None Musculoskeletal History: Reports: RA Neurological History: Reports: None Psychiatric History: Reports: Anxiety Endocrine/Metabolic History: Reports: None Hematologic History: Reports: None Immunologic History: Reports: None Oncologic (Cancer) History: Reports: Brain, Liver, Lung, Other (See Below) Other Oncologic History: currently on chemo IV and gets it every . last received last week saturday. Dermatologic History: Reports: None - Past Surgical History Female Surgical History: Reports: Hysterectomy Social & Family History - Tobacco Use Tobacco Use Status *Q: Never Tobacco User - Caffeine Use Caffeine Use: Reports: None ED ROS GENERAL - Review of Systems Review Of Systems: Unable To Obtain Reason Not Obtained: Patient confused ED EXAM, GENERAL - Physical Exam Exam: See Below Exam Limited By: No Limitations General Appearance: No Apparent Distress, Cachetic Eye Exam: Bilateral Eye: EOMI, Normal Inspection Ears: Normal External Exam, Hearing Grossly Normal Nose: Normal Inspection Throat/Mouth: Normal Inspection, Normal Lips, Normal Voice, No Airway Compromise Head: Atraumatic, Other (Bitemporal wasting) Neck: Normal Inspection, Full Range of Motion Respiratory/Chest: No Respiratory Distress, Lungs Clear, Normal Breath Sounds, No Accessory Muscle Use, Chest Non-Tender, Other (Left chest Port-A-Cath) Cardiovascular: Normal Peripheral Pulses, No Edema, No Gallop, No JVD, No Murmur, No Rub, Tachycardia (regular) Peripheral Pulses: 3+: Radial (L), Radial (R) GI/Abdominal: Normal Bowel Sounds, Soft, Non-Tender, No Distention, No Abnormal Bruit, Mass, Hepatomegaly Back Exam: Normal Inspection, Full Range of Motion, NT Extremities: Normal Inspection, Normal Range of Motion, No Pedal Edema, Normal Capillary Refill Neurological: No Motor/Sensory Deficits, Confused Psychiatric: Normal Affect Skin Exam: Warm, Dry, Intact, Normal Color, No Rash Course - Re-Assessments/Exams Free Text/Narrative Re-Assessment/Exam: 03/08/21 06:20 A CBC, CMP, magnesium level, CRP, pro-BNP, TSH, and urinalysis were ordered at triage. I have canceled the CRP, pro-BNP, and TSH, as they are not helpful in this situation, but left the others. I added orthostatics. A 1 L bolus of NS was also ordered at triage. 03/08/21 06:21 Notified by Shantel LYNNE that the patient did not want to participate with orthost atics. 03/08/21 07:[address] Kat, and care of the patient turned over to him at this time, for change of shift. Departure - Departure Disposition: Home, Self-Care 01 Clinical Impression: Hyponatremia, Dehydration - Discharge Information Referrals: Sylvie Weldon [facility] [Primary Care Provider] - Forms: ED Department Discharge Additional Instructions: Please follow-up with your oncologist as soon as possible. Your MRI is scheduled for 1230 today. Recommend keeping that appointment. Return should you have any emergent concerns. Sepsis Event Note (ED) - Evaluation Sepsis Screening Result: No Definite Risk <Landon Kat - Last Filed: 03/08/21 07:46> Course - Vital Signs Last Recorded V/S: Last Vital Signs Temp 36.4 C 03/08/21 05:07 Pulse 128 H 03/08/21 05:07 Resp 16 03/08/21 05:07 BP 128/87 03/08/21 05:07 Pulse Ox 96 03/08/21 05:07 - Orders/Labs/Meds Orders: Active Orders 24 hr Category Date Time Status Orthostatic Vital Signs [RC] STAT Care 03/08/21 05:03 Active Peripheral IV Care [RC] . DIRECTED Care 03/08/21 06:03 Active UA W/MICROSCOPIC [URIN] Stat Lab 03/08/21 06:02 Ordered Sodium Chloride 0.9% [Saline Flush] Med 03/08/21 06:02 Active 10 ml FLUSH ASDIRECTED PRN Peripheral IV Insertion Adult [OM.PC] Stat Oth 03/08/21 06:02 Ordered Medication Orders Sodium Chloride (Sodium Chloride 0.9% 10 Ml Syringe) 10 ml FLUSH ASDIRECTED PRN PRN Reason: Keep Vein Open Last Admin: 03/08/21 06:30 Dose: 10 ml Documented by: CARLA Labs: Laboratory Tests 03/08/21 03/08/21 Range/Units 06:15 06:15 WBC 6.88 (3.98-10.04) K/mm3 RBC 3.33 L (3.98-5.22) M/mm3 Hgb 10.8 L (11.2-15.7) gm/dl Hct 31.5 L (34.1-44.9) % MCV 94.6 (79.4-94.8) fl MCH 32.4 H (25.6-32.2) pg MCHC 34.3 (32.2-35.5) g/dl RDW Std Deviation 70.3 H (36.4-46.3) fL Plt Count 228 D (182-369) K/mm3 MPV 8.7 L (9.4-12.3) fl Neut % (Auto) 66.0 (34.0-71.1) % Lymph % (Auto) 10.5 L (19.3-51.7) % [place] % (Auto) 19.0 H (4.7-12.5) % Eos % (Auto) 0 L (0.7-5.8) Baso % (Auto) 0.4 (0.1-1.2) % Neut # (Auto) 4.54 (1.56-6.13) K/mm3 Lymph # (Auto) 0.72 L (1.18-3.74) K/mm3 [place] # (Auto) 1.31 H (0.24-0.36) K/mm3 Eos # (Auto) 0.00 L (0.04-0.36) K/mm3 Baso # (Auto) 0.03 (0.01-0.08) K/mm3 Manual Slide Review Abnormal smear Sodium 126 L (136-145) mEq/L Potassium 4.0 (3.5-5.1) mEq/L Chloride 89 L (98-107) mEq/L Carbon Dioxide 16 L (21-32) mEq/L Anion Gap 25.0 H (5-15) BUN 10 (7-18) mg/dL Creatinine 0.7 (0.55-1.02) mg/dL Est Cr Clr Drug Dosing TNP Estimated GFR (MDRD) > 60 (>60) mL/min BUN/Creatinine Ratio 14.3 (14-18) Glucose 66 L (70-99) mg/dL Calcium 8.6 (8.5-10.1) mg/dL Magnesium 1.6 L (1.8-2.4) mg/dL Total Bilirubin 1.7 H (0.2-1.0) mg/dL AST 372 H (15-37) U/L ALT 61 H (14-59) U/L Alkaline Phosphatase 734 H (46-116) U/L Total Protein 6.2 L (6.4-8.2) g/dl Albumin 2.2 L (3.4-5.0) g/dl Globulin 4.0 gm/dL Albumin/Globulin Ratio 0.6 L (1-2) Meds: Medications Generic Name Dose Route Start Last Admin Trade Name Freq PRN Reason Stop Dose Admin Sodium Chloride 10 ml 03/08/21 06:02 03/08/21 06:30 Sodium Chloride 0.9% 10 Ml Syringe FLUSH 10 ml ASDIRECTED PRN Administration Keep Vein Open Discontinued Medications Generic Name Dose Route Start Last Admin Trade Name Freq PRN Reason Stop Dose Admin Sodium Chloride 1,000 mls @ 999 mls/hr 03/08/21 06:04 03/08/21 06:32 Normal Saline IV 03/08/21 07:04 999 mls/hr ONETIME ONE Administration - Re-Assessments/Exams Free Text/Narrative Re-Assessment/Exam: 03/08/21 07:45 I assumed care of patient at routine shift change. I reexamined the patient at bedside and reviewed history and laboratory studies. During examination, patient's heart rate had improved from 128 to 100 on my exam. Her laboratory studies reviewed. Patient demonstrates chronic hyponatremia. She also demonstrated evidence of mild hypoglycemia and mild hypomagnesemia. Patient was given breakfast in the emergency room to improve blood sugar. Hyponatremia is likely secondary to underlying pathology. Patient will be given prescription for magnesium and instructed to follow-up with primary care/oncology for repeat laboratory testing and immediate follow-up. Departure - Departure Time of Disposition: 07:41 Sepsis Event Note (ED) - Focused Exam Vital Signs: Vital Signs Temp Pulse Resp BP Pulse Ox 03/08/21 05:07 36.4 C 128 H 16 128/87 96
[2021-03-08] MEDS ORDERED: oxyCODONE 5 MG Tab PO ONE (08:24)
== END 2021-03-08 12:30 | disposition home or self-care (01) ==
LOC: JD.ED 04:49
DX: E86.0 Dehydration (principal); E87.1 Hypo-osmolality and hyponatremia; Z79.899 Other long term (current) drug therapy
CPT/HCPCS: 36415; 80053; 83735; 85025; 99284; A9270; J7030

== ENCOUNTER 2021-03-09 16:46 | Emergency (ER) | payer OTHER ==
[2021-03-09] MEDS ORDERED: Lactated Ringers 1,000 ML IV ONE (17:35)
--- NOTE | 2021-03-09 18:27 | CR ---
Chest: Frontal view of the chest was obtained. Comparison: Prior chest x-ray of 03/02/21. Left-sided infusion catheter is seen. Double density is seen adjacent to the right hemidiaphragm which most likely represent lobulation of the diaphragm. Lungs show no acute parenchymal change. Degenerative change is noted within both shoulders. Scattered disc space narrowing and endplate spurring are seen within the spine. Impression: 1. Findings as noted above. 2. Nothing acute is definitely seen on frontal chest x-ray. Diagnostic code #2
--- NOTE | 2021-03-09 18:37 | EDM.PDOC ---
<Wojciech Kelly - Last Filed: 03/09/21 21:39> ED HPI GENERAL MEDICAL PROBLEM - General Chief Complaint: General Stated Complaint: SONG AMB Time Seen by Provider: 03/09/21 18:00 - Related Data Allergies Allergy/AdvReac Type Severity Reaction Status Date / Time No Known Allergies Allergy Verified 03/09/21 17:03 Home Meds: Home Meds Calcium Carbonate/Vitamin D3 [Calcium 500+D Tablet Chew] 1 tab PO DAILY 02/14/21 [History] Dextran 70/Hypromellose [Artificial Tears] 1 each OP DAILY 02/14/21 [History] Hydrocodone/Acetaminophen [HYDROcodone-Acetaminophen 5-325 MG] 1 each PO DAILY 02/14/21 [History] LORazepam [Ativan] 1 mg PO DAILY PRN 02/14/21 [History] Magnesium Oxide [Magnesium] 400 mg PO DAILY 02/14/21 [History] Potassium Chloride 20 meq PO BID 02/14/21 [History] allopurinoL [Zyloprim] 100 mg PO DAILY 02/14/21 [History] levETIRAcetam [Keppra] 500 mg PO BID 02/14/21 [History] Prochlorperazine [Compazine] 10 mg PO QID PRN 02/24/21 [History] dexAMETHasone [Dexamethasone] 2 mg PO DAILY 02/24/21 [History] Course - Re-Assessments/Exams Free Text/Narrative Re-Assessment/Exam: 03/09/21 20:[address] Kat for change of shift. I agree with his history and physical examination as documented. We are aware that there are no beds available at [facility]. Case discussed with Aaron at [facility] at 20:29. Case then discussed with Dr. Barreto, Hospitalist at [facility], at 20:38. He accepted the patient for transfer to their facility, provided that the patient and her family understand that the treatment will be comfort care and arrangement for hospice, not cancer treatment. 03/09/21 20:[address] Barreto discussed with the patient's son, who is at the bedside. That is his understanding, that the cancer has progressed despite treatment, and that she is to be made comfort care only, including no oxygen. We will transport the patient to [place] by ground ambulance. 03/09/21 21:39 The patient's swab for the SARS-CoV-2 virus is negative. Departure - Departure Time of Disposition: 20:48 Disposition: Home, Self-Care 01 Condition: Good Clinical Impression: Need for comfort care, Metastatic carcinoma - Discharge Information *PRESCRIPTION DRUG MONITORING PROGRAM REVIEWED*: Not Applicable *COPY OF PRESCRIPTION DRUG MONITORING REPORT IN PATIENT SANTOS: Not Applicable Referrals: Gloria Lowe NP [Ordering Only Provider] - Arnaud Dickerson MD [Ordering Only Provider] - Forms: ED Department Discharge <Landon Kat - Last Filed: 03/11/21 01:15> ED HPI GENERAL MEDICAL PROBLEM - General Source of Information: Reports: Patient History Limitations: Reports: No Limitations - History of Present Illness INITIAL COMMENTS - FREE TEXT/NARRATIVE: Patient is a 60-year-old female presented to emergency room with a complaint of generalized weakness. History is limited secondary to significant weakness. However, patient does not seem altered or confused. She answers in 1-2 words. Patient in the emergency room yesterday for similar complaint. No interval change. Patient still reports no appetite. No fevers, vomiting, focal areas of pain. Past Medical History HEENT History: Reports: Cataract, Impaired Vision Cardiovascular History: Reports: None Respiratory History: Reports: Other (See Below) Other Respiratory History: mlung cancer and hx of smoking Gastrointestinal History: Reports: None Genitourinary History: Reports: None Musculoskeletal History: Reports: RA Neurological History: Reports: None Psychiatric History: Reports: Anxiety Endocrine/Metabolic History: Reports: None Hematologic History: Reports: None Immunologic History: Reports: None Oncologic (Cancer) History: Reports: Brain, Liver, Lung, Other (See Below) Other Oncologic History: currently on chemo IV and gets it every 21. last received last week saturday. Dermatologic History: Reports: None - Past Surgical History Female Surgical History: Reports: Hysterectomy Social & Family History - Tobacco Use Tobacco Use Status *Q: Unknown Ever Used Tobacco - Caffeine Use Caffeine Use: Reports: None ED ROS GENERAL - Review of Systems Review Of Systems: Comprehensive ROS is negative, except as noted in HPI. ED EXAM, GENERAL - Physical Exam Exam: See Below Free Text/Narrative:: I have reviewed the triage vital signs Const: Cachectic. Nontoxic. Resting with eyes closed. Will open eyes to answer questions. Eyes: Pupils Equal and reactive to light bilaterally, no conjunctival injection HENT: No signs of trauma or swelling, Neck supple without meningismus CV: Regular Rate Rhythm, Warm, well-perfused extremities RESP: Unlabored respiratory effort GI: Hard abdomen without rigidity. No focal areas of tenderness. MSK: No gross deformities appreciated Skin: Warm, dry. No rashes Neuro: Alert, new grad rn II-XII grossly intact. Sensation and motor function of extremities grossly intact. Psych: Flat mood and affect. Course - Vital Signs Last Recorded V/S: Last Vital Signs Temp 36.9 C 03/09/21 22:30 Pulse 121 H 03/09/21 22:30 Resp 12 03/09/21 22:30 BP 108/81 03/09/21 22:30 Pulse Ox 93 L 03/09/21 22:30 - Orders/Labs/Meds Labs: Laboratory Tests 03/09/21 03/09/21 03/09/21 Range/Units 17:45 17:45 17:45 WBC 8.33 (3.98-10.04) K/mm3 RBC 3.30 L (3.98-5.22) M/mm3 Hgb 10.8 L (11.2-15.7) gm/dl Hct 31.3 L (34.1-44.9) % MCV 94.8 (79.4-94.8) fl MCH 32.7 H (25.6-32.2) pg MCHC 34.5 (32.2-35.5) g/dl RDW Std Deviation 71.2 H (36.4-46.3) fL Plt Count 187 (182-369) K/mm3 MPV 8.7 L (9.4-12.3) fl Neut % (Auto) 74.4 H (34.0-71.1) % Lymph % (Auto) 6.4 L (19.3-51.7) % [place] % (Auto) 14.4 H (4.7-12.5) % Eos % (Auto) 0 L (0.7-5.8) Baso % (Auto) 0.1 (0.1-1.2) % Neut # (Auto) 6.20 H (1.56-6.13) K/mm3 Lymph # (Auto) 0.53 L (1.18-3.74) K/mm3 [place] # (Auto) 1.20 H (0.24-0.36) K/mm3 Eos # (Auto) 0.00 L (0.04-0.36) K/mm3 Baso # (Auto) 0.01 (0.01-0.08) K/mm3 Manual Slide Review Abnormal smear PT 11.4 (9.7-12.0) SECONDS INR 1.03 Sodium 131 L (136-145) mEq/L Potassium 4.3 (3.5-5.1) mEq/L Chloride 94 L (98-107) mEq/L Carbon Dioxide 19 L (21-32) mEq/L Anion Gap 22.3 H (5-15) BUN 9 (7-18) mg/dL Creatinine 0.5 L (0.55-1.02) mg/dL Est Cr Clr Drug Dosing 84.87 mL/min Estimated GFR (MDRD) > 60 (>60) mL/min BUN/Creatinine Ratio 18.0 (14-18) Glucose 81 (70-99) mg/dL Lactic Acid (0.4-2.0) mmol/L Calcium 7.9 L (8.5-10.1) mg/dL Magnesium 1.6 L (1.8-2.4) mg/dL Total Bilirubin 1.8 H (0.2-1.0) mg/dL AST 372 H (15-37) U/L ALT 60 H (14-59) U/L Alkaline Phosphatase 940 H (46-116) U/L Total Protein 5.4 L (6.4-8.2) g/dl Albumin 1.9 L (3.4-5.0) g/dl Globulin 3.5 gm/dL Albumin/Globulin Ratio 0.5 L (1-2) SARS-CoV-2 RNA (TERI) (NEGATIVE) 03/09/21 03/09/21 Range/Units 17:45 20:30 WBC (3.98-10.04) K/mm3 RBC (3.98-5.22) M/mm3 Hgb (11.2-15.7) gm/dl Hct (34.1-44.9) % MCV (79.4-94.8) fl MCH (25.6-32.2) pg MCHC (32.2-35.5) g/dl RDW Std Deviation (36.4-46.3) fL Plt Count (182-369) K/mm3 MPV (9.4-12.3) fl Neut % (Auto) (34.0-71.1) % Lymph % (Auto) (19.3-51.7) % [place] % (Auto) (4.7-12.5) % Eos % (Auto) (0.7-5.8) Baso % (Auto) (0.1-1.2) % Neut # (Auto) (1.56-6.13) K/mm3 Lymph # (Auto) (1.18-3.74) K/mm3 [place] # (Auto) (0.24-0.36) K/mm3 Eos # (Auto) (0.04-0.36) K/mm3 Baso # (Auto) (0.01-0.08) K/mm3 Manual Slide Review PT (9.7-12.0) SECONDS INR Sodium (136-145) mEq/L Potassium (3.5-5.1) mEq/L Chloride (98-107) mEq/L Carbon Dioxide (21-32) mEq/L Anion Gap (5-15) BUN (7-18) mg/dL Creatinine (0.55-1.02) mg/dL Est Cr Clr Drug Dosing mL/min Estimated GFR (MDRD) (>60) mL/min BUN/Creatinine Ratio (14-18) Glucose (70-99) mg/dL Lactic Acid 0.9 (0.4-2.0) mmol/L Calcium (8.5-10.1) mg/dL Magnesium (1.8-2.4) mg/dL Total Bilirubin (0.2-1.0) mg/dL AST (15-37) U/L ALT (14-59) U/L Alkaline Phosphatase (46-116) U/L Total Protein (6.4-8.2) g/dl Albumin (3.4-5.0) g/dl Globulin gm/dL Albumin/Globulin Ratio (1-2) SARS-CoV-2 RNA (TERI) Negative (NEGATIVE) Meds: Medications Discontinued Medications Generic Name Dose Route Start Last Admin Trade Name Freq PRN Reason Stop Dose Admin Lactated Ringer's 1,000 mls @ 250 mls/hr 03/09/21 17:35 Ringers, Lactated IV 03/09/21 21:34 .BOLUS ONE Morphine Sulfate 4 mg 03/09/21 19:29 03/09/21 20:04 Morphine 4 Mg/Ml Syringe IVPUSH 03/09/21 19:30 4 mg ONETIME ONE Administration - Re-Assessments/Exams Free Text/Narrative Re-Assessment/Exam: 03/09/21 19:34 Patient son, Dilan showed up in the emergency room and inform me of plan with oncology to discontinue all chemotherapy treatment. His oncologist did recommend home hospice. Patient's son is concerned about inability to take anything by mouth. We had lengthy discussion regarding bed availability, patient's significant pathology as well as eminent . He understands that patient will not survive but we did talk about options for hospice. We will reach out to [facility] to see if they have beds available. If not, Dilan is in agreement that patient can be discharged with him until hospice care is arranged. He understands at the holiday is complicating this fact as well as it being the weekend. We discussed possibility of liquid morphine being administered in the meantime. At this point in time, patient will be signed out pending update from [facility] regarding transfer versus discharge. Dr. Kelly will assume care patient during routine shift change. 03/11/21 01:14 - Assessment/Plan Assessment:: Patient is a 60-year-old female presenting with failure to thrive due to underlying metastatic cancer. She is severely ill at this point and family is in agreement that comfort care measures should be pursued. There is not appear to be any reversible causes and family understands that is imminent.
[2021-03-09] MEDS ORDERED: Morphine 4 MG/ML Syringe IVPUSH ONE (19:29)
== END 2021-03-09 22:30 | disposition home or self-care (01) ==
LOC: JD.ED 16:46
DX: C80.1 Malignant (primary) neoplasm, unspecified (principal); Z20.822 Contact with and (suspected) exposure to COVID-19
CPT/HCPCS: 36415; 71045; 80053; 83605; 83735; 85025; 85610; 87635; 96374; 99285; J2270; U0002